=== PATIENT | female | born 1955 | race Caucasian/White ===

== ENCOUNTER → 2016-08-25 | Outpatient (CLI) | payer OTHER ==
[~2016-08-25] MED LIST: ALBU1AER9 INH; ATV1 PO; BACL20TA PO; BENZ100C84 PO; CYM60 PO; CZR50 PO; LAMO200T38 PO; LEVO150T PO; LEVO175T3 PO; ONDA4TAB9 PO; PRED20TA PO; PRLSR20 PO; SIMV20TA2 PO; SYMIN160 INH; TRAM-10 PO; TRAZ100T29 PO
[2016-08-25 12:39] LABS: THYROID STIMULATING HORMONE 0.278 uIu/ml (0.300-4.500)
== END | disposition home or self-care (01) ==
LOC: C.LAB1850 10:27
PROVIDERS: ATTEND Internal Medicine Endocrinology, Diabetes & Metabolism
DX: E89.0 Postprocedural hypothyroidism (principal); R51 Headache

== ENCOUNTER 2016-10-07 12:27 | Emergency (ER) | payer OTHER ==
[~2016-10-07] VITALS: Ht 160 cm; Wt 37.3 kg
[~2016-10-07 12:27] MED LIST changes: -LEVO150T PO; -PRED20TA PO; -PRLSR20 PO
[2016-10-07 12:40] VITALS: TEMP 37.3; Ht 160 cm; Wt 37.3 kg
[2016-10-07] MEDS ORDERED: DiphenhydrAMINE HCL 50 MG/ML VIAL IV STA (13:20)
[2016-10-07] MEDS ORDERED: SODIUM CHLORIDE 0.9% 1000ML 1,000 ML IV STA (13:20)
[2016-10-07] MEDS ORDERED: HYDROCODONE/ACETAMINOPHEN 7.5/325MG TAB PO STA (13:24)
--- NOTE | 2016-10-07 13:26 | EMERGENCY ROOM VISIT NOTE ---
History Report prepared by Stewart: Claudia Carpio Under the Supervision of: Dr. Katie Mathias M.D. First contact with patient: 13:15 Chief Complaint: ALLERGIC REACTION Stated Complaint: ALLERGIC REACTION Nursing Triage Summary: PT SENT HERE VIA ALS FROM THE [address] [facility] WHERE SHE WAS HAVING AN APPT WITH HER PCP FOR ONGOING LEFT SHOULDER PAIN. PT RECEIVED 15MG IM TORADOL AND 80MG IM SOLUMEDROL AT THE OFFICE WHEN SHE DEVELOPED A "SCRATCHY THROAT AND PINS AND NEEDLES AROUND HER MOUTH". EN ROUTE PT VERBALIZED SHE WAS NAUSEATED, EMS GAVE 4MG IV ZOFRAN EN ROUTE. PT PRESENTS TO ED STILL C/O "PINS AND NEEDLES AROUND LIPS". O2 SATS 98% ON ROOM AIR. History of Present Illness The patient is a 61 year old female who presents to the Emergency Room with complaints of an allergic reaction that occurred today. The patient states that she was seeing Dr. Miles today in the office due to ongoing left shoulder pain for the past several months. She received 15 mg IM Toradol and 80 mg IM Solu-Medrol and started getting the sensation of needles around her mouth and face. Her legs were also shaky. Dr. Miles recommended that she come to the ED. Currently, she states that she feels "prickly," especially around her mouth. She has never had an allergic reaction to Toradol in the past. She has other allergies but notes that her symptoms are typically different. She did not receive any Benadryl in the office. She also complains of left shoulder pain that radiates through her hand. It is worse with movement and is weaker than usual. Denies rash, shortness of breath, or other complaints. She does not follow up with a pain specialist. Source of History: patient Onset: today Position: other (global) Quality: other (allergic reaction) Timing: other (episode) Associated Symptoms: No SOB, No rash Note: Other symptoms: left shoulder/arm pain Review of Systems See HPI for pertinent positives & negatives. A total of 10 systems reviewed and were otherwise negative. Past Medical & Surgical Medical Problems: (1) Abdominal pain (2) Arthritis (3) Asthma (4) Bone spur (5) Bronchitis (6) Chronic low back pain (7) Degenerative disc disease (8) Emphysema of lung (9) Hypertension (10) Kidney stone (11) Thyroid cancer Surgical Problems: (1) S/P cholecystectomy (2) S/P hysterectomy Family History FH: aneurysm FH: cancer FH: hypertension FH: kidney disease FH: lung disease Heart disease Social History Smoking Status: Unknown if Ever Smoked Alcohol Use: occasionally Marital Status: Housing Status: lives with family Current/Historical Medications Scheduled Duloxetine HCl (Duloxetine HCl), 120 MG PO QAM Lamotrigine (Lamictal), 200 MG PO BID Levothyroxine Sodium (Levothyroxine Sodium), 175 MCG PO DAILY Lorazepam (Lorazepam), 1 MG PO TID Losartan Potassium (Losartan Potassium), 50 MG PO DAILY Prednisone (Prednisone), 40 MG PO DAILY Simvastatin (Zocor), 20 MG PO QPM Trazodone Hcl (Trazodone), 3 TAB PO HS Scheduled PRN Baclofen (Lioresal), 20 MG PO QID PRN for Muscle Spasms Budesonide/Formoterol Fumarate (Symbicort 160/4.5 Inhaler ), 2 PUFFS INH BID PRN for SOB/Wheezing Ondansetron (Ondansetron HCl), 4 MG PO Q6 PRN for Nausea or Vomiting Tramadol (Ultram), 1-2 TAB PO BID PRN for Pain Allergies Coded Allergies: Fish (Verified Allergy, Unknown, ., 10/07/16) SEAFOOD Iodinated Diagnostic Agents (Unverified Allergy, Unknown, Itchiness, ) contrast media causes itchiness Ketorolac (Verified Allergy, Unknown, ., 10/07/16) Morphine (Verified Allergy, Unknown, ., 10/07/16) Shellfish (Verified Allergy, Unknown, GI upset, 10/07/16) Sulfa Antibiotics (Unverified Allergy, Unknown, Itching, GI distress, 10/07) Sumatriptan (Verified Adverse Reaction, Unknown, FELT SICK,NAUSEA, 10/07/16 ) Uncoded Allergies: PET DANDER (Allergy, Unknown, ., 09/07/15) Physical Exam Vital Signs Date Time Temp Pulse Resp B/P Pulse Ox O2 Delivery O2 Flow Rate FiO2 10/07/16 15:06 63 18 137/78 96 Room Air 10/07/16 12:40 98 Room Air 10/07/16 12:40 64 10/07/16 12:40 37.3 66 18 129/79 98 Room Air Physical Exam Vital signs reviewed. General: Well-appearing 61 year old female, in no significant distress. HEENT: No scleral icterus, PERRLA, neck supple. Atraumatic. Cardiovascular: Regular rate and rhythm, no extra sounds. Pulmonary: Clear to auscultation bilaterally, normal work of breathing. Abdomen: Soft, nontender, nondistended, positive bowel sounds. Musculoskeletal: Atraumatic, no peripheral edema. Pain over the left shoulder, pain with any range of motion although range of motion is intact, strength is intact, pain over the biceps tendon insertion. Neurologic: Patient awake alert and oriented x 3, full strength in all 4 extremities. Cranial nerves 2 through 12 grossly intact. Skin: Warm, dry, no rash Medical Decision & Procedures ER Provider Diagnostic Interpretation: Radiology results as stated below per my review and radiologist interpretation: LEFT SHOULDER MIN 2 VIEWS ROUTINE CLINICAL HISTORY: L arm radiculopathy pain. Neuropathy. COMPARISON: None. DISCUSSION: Moderate generalized degenerative change glenohumeral joint. Mild degenerative change acromioclavicular joint. No abnormal soft tissue calcifications. No fracture or dislocation. There is no evidence for soft tissue swelling. IMPRESSION: Moderate degenerative change. No acute bony abnormality. Electronically signed by: Syed Guevara M.D. 10/07/2016 2:39 PM Dictated Date/Time: 10/07/2016 2:37 PM CERVICAL SPINE 5 VIEWS HISTORY: Left arm radiculopathy. Shoulder pain. COMPARISON: None. FINDINGS: The cervical spine is visualized from C1 through the superior endplate of T1. There is no fracture. There is 2 mm of anterolisthesis of C4 and C5. Straightening of the cervical spine. Mild disc space narrowing and small endplate osteophytes at C5-C6 and C6-C7. Mild facet degenerative changes seen throughout the cervical spine. Mild right-sided neural foraminal narrowing at C3-C4 and moderate right-sided neural foraminal narrowing at C6-C7. Mild left-sided neural foraminal narrowing at C5-C6. Prevertebral soft tissues and the atlantodens interval are intact. IMPRESSION: No fracture or subluxation within the cervical spine. Degenerative changes as described above most pronounced at the C5-C6 and C6-C7 levels. Electronically signed by: Bennett Crane M.D. 10/07/2016 2:45 PM Dictated Date/Time: 10/07/2016 2:41 PM Medications Administered Medications (Trade) Dose Ordered Sig/Jeri Route Start Time Stop Time Status Last Admin Dose Admin Diphenhydramine HCl 50 mg 50 mg NOW STAT IV 10/07/16 13:20 10/07/16 13:22 DC 10/07/16 13:31 50 MG Sodium Chloride (Nss 1000ml) 1,000 ml @ 125 mls/hr Q8H STAT IV 10/07/16 13:20 10/07/16 16:11 DC 10/07/16 13:31 125 MLS/HR Acetaminophen/ Hydrocodone Bitart (Premium 7.5/325 Tab) 1 tab NOW STAT PO 10/07/16 13:24 10/07/16 13:25 DC 10/07/16 13:31 1 TAB ED Course 1317: The patient was evaluated in room C1. A complete history and physical examination was performed. 1320: Ordered NSS 1000 ml @ 125 mls/hr IV, Benadryl Inj 50 mg IV, Acetaminophen/ Hydrocodone Bitart 1 tab PO. 1501: Upon reevaluation, the patient appeared to have improvement of her symptoms. I discussed findings with the patient. She verbalized agreement of the treatment plan. The patient was discharged home. Medical Decision Differential includes cervical radiculopathy, rotator cuff injury, tendonitis, arthritis, septic joint, bony fracture. This patient was evaluated and appeared to be in no significant distress. IV access was obtained. The patient was medicated with IV Benadryl 50 mg and hydrated with normal saline solution. Patient requested something for pain regarding her shoulder, she was given Premium 7.5/325. Patient was reassured regarding her findings. I do not suspect a severe allergic reaction. The patient did request IV narcotics for her chronic discomfort. She was encouraged to follow-up with orthopedic surgery this week for evaluation of this shoulder. She will return to the ER for worsening of symptoms or any medical concerns. Impression Primary Impression: Left shoulder pain Additional Impression: Allergic reaction Scribe Attestation The scribe's documentation has been prepared under my direction and personally reviewed by me in its entirety. I confirm that the note above accurately reflects all work, treatment, procedures, and medical decision making performed by me. Departure Information Dispostion Home / Self-Care Prescriptions Prednisone (Prednisone) 20 Mg Tab 40 MG PO DAILY, #8 TAB Prov: Katie Mathias M.D. 10/07/16 Referrals RV. Fields MD (PCP) Patient Instructions [facility] Additional Instructions Diagnosis: Left shoulder pain, allergic reaction Prednisone 40 mg daily for 4 more days Benadryl 25-50 mg every 6 hours as needed for itching or allergic symptoms. Continue your Ultram as prescribed for pain. Follow-up with your physician this week for reevaluation. Contact orthopedics for follow-up regarding her left shoulder. Return to the ER for worsening of symptoms or any medical concerns. Problem Qualifiers Primary Impression: Left shoulder pain Chronicity: acute Qualified Codes: M25.512 - Pain in left shoulder Additional Impression: Allergic reaction Encounter type: initial encounter Qualified Codes: T78.40XA - Allergy, unspecified, initial encounter
--- NOTE | 2016-10-07 14:40 | DIAGNOSTIC IMAGING REPORT ---
LEFT SHOULDER MIN 2 VIEWS ROUTINE CLINICAL HISTORY: L arm radiculopathy pain. Neuropathy. COMPARISON: None. DISCUSSION: Moderate generalized degenerative change glenohumeral joint. Mild degenerative change acromioclavicular joint. No abnormal soft tissue calcifications. No fracture or dislocation. There is no evidence for soft tissue swelling. IMPRESSION: Moderate degenerative change. No acute bony abnormality. Electronically signed by: Syed Guevara M.D. 10/07/2016 2:39 PM Dictated Date/Time: 10/07/2016 2:37 PM
--- NOTE | 2016-10-07 14:46 | DIAGNOSTIC IMAGING REPORT ---
CERVICAL SPINE 5 VIEWS HISTORY: Left arm radiculopathy. Shoulder pain. COMPARISON: None. FINDINGS: The cervical spine is visualized from C1 through the superior endplate of T1. There is no fracture. There is 2 mm of anterolisthesis of C4 and C5. Straightening of the cervical spine. Mild disc space narrowing and small endplate osteophytes at C5-C6 and C6-C7. Mild facet degenerative changes seen throughout the cervical spine. Mild right-sided neural foraminal narrowing at C3-C4 and moderate right-sided neural foraminal narrowing at C6-C7. Mild left-sided neural foraminal narrowing at C5-C6. Prevertebral soft tissues and the atlantodens interval are intact. IMPRESSION: No fracture or subluxation within the cervical spine. Degenerative changes as described above most pronounced at the C5-C6 and C6-C7 levels. Electronically signed by: Bennett Crane M.D. 10/07/2016 2:45 PM Dictated Date/Time: 10/07/2016 2:41 PM
[2016-10-07] MEDS ORDERED: PRED20TA PO (14:55)
[2016-10-07 15:06] VITALS: BP 137/78; PULSE 63; O2SAT 96
[2017-05-26] MEDS ORDERED: PRLSR20 PO (13:27)
[2017-05-26] MEDS ORDERED: LEVO150T PO (13:27)
== END 2016-10-07 15:13 | disposition home or self-care (01) ==
LOC: EDBD 12:27 → C.EDC 12:28
DX: M25.512 Pain in left shoulder (principal); T78.40XA Allergy, unspecified, initial encounter; X58.XXXA Exposure to other specified factors, initial encounter; M19.90 Unspecified osteoarthritis, unspecified site; J45.909 Unspecified asthma, uncomplicated; J43.9 Emphysema, unspecified; I10 Essential (primary) hypertension; Z87.442 Personal history of urinary calculi; Z85.850 Personal history of malignant neoplasm of thyroid; Z80.9 Family history of malignant neoplasm, unspecified; Z82.49 Family history of ischemic heart disease and other diseases of the circulatory system; Z84.1 Family history of disorders of kidney and ureter; Z83.6 Family history of other diseases of the respiratory system; Z79.899 Other long term (current) drug therapy

== ENCOUNTER → 2016-10-29 | Outpatient (CLI) | payer OTHER ==
[~2016-10-29] MED LIST changes: -ALBU1AER9 INH; -BENZ100C84 PO; +LEVO150T PO; +PRED20TA PO; +PRLSR20 PO
--- NOTE | 2016-10-29 12:09 | DIAGNOSTIC IMAGING REPORT ---
ADDENDUM Conclusion #3 should state neoplastic potential is considered low. Electronically signed by: Syed Guevara M.D. 10/29/2016 1:42 PM Dictated Date/Time: 10/29/2016 1:42 PM ORIGINAL REPORT MRCP CLINICAL HISTORY: K86.2 Pancreatic cyst TECHNIQUE: Multiaxial MRI acquisition COMPARISON STUDY: CT examination of the abdomen dated 08/03/2015, 11/12/2015, 05/05/2016 FINDINGS: Signal characteristics of liver and spleen are unremarkable. MRCP comparison study is unremarkable. There is a 5 mm cystic focus in the region of the juncture of the pancreatic body and tail unchanged as compared to several prior CT exams. This again is most consistent with that of a sidebranch ISMN. There are no new or interval lesions. There is no significant abdominal or retroperitoneal adenopathy. Kidneys enhance uniformly. No evidence for hydronephrosis. IMPRESSION: 1. Stable 5 mm cystic process juncture pancreatic body and tail. 2. Study is otherwise unremarkable. 3. Given its stability over several prior exams, neoplastic potential is considered nodular lobe. 4. Remainder the study is negative Electronically signed by: Syed Guevara M.D. 10/29/2016 12:08 PM Dictated Date/Time: 10/29/2016 11:58 AM
== END | disposition home or self-care (01) ==
LOC: C.MRIBC 11:03
PROVIDERS: ATTEND Internal Medicine
DX: K86.2 Cyst of pancreas (principal)

== ENCOUNTER → 2016-11-14 | Outpatient (CLI) | payer OTHER ==
--- NOTE | 2016-11-14 16:29 | MAMMOGRAPHY REPORT ---
BILATERAL DIGITAL SCREENING MAMMOGRAM WITH CAD: 11/14/2016 TECHNIQUE: Current study was also evaluated with a Computer Aided Detection (CAD) system. Bilatera l CC and MLO views were obtained. COMPARISON: Comparison is made to exams dated: 06/21/2013 mammogram, 06/05/2014 mammogram, 5 mammogram, and 07/08/2011 mammogram - [facility]. BREAST COMPOSITION: There are scattered areas of fibroglandular density in both breasts. FINDINGS: No suspicious masses, calcifications, or areas of architectural distortion are noted in e ither breast. There has been no significant interval change compared to prior exams. IMPRESSION: ACR BI-RADS CATEGORY 1: NEGATIVE There is no mammographic evidence of malignancy. A 1 year screening mammogram is recommended. The p atient will receive written notification of the results. Approximately 10% of breast cancers are not detected with mammography. A negative mammographic repor t should not delay biopsy if a clinically suggestive mass is present. Demetria Donnelly M.D. ah/:11/14/2016 15:32:00 Front Facer: Rosaura OAKES(R)(M), [facility] letter sent: Normal 1/2 BI-RADS Code: ACR BI-RADS Category 1: Negative
== END | disposition home or self-care (01) ==
LOC: C.MAMM 13:30
PROVIDERS: ATTEND Internal Medicine
DX: Z12.31 Encounter for screening mammogram for malignant neoplasm of breast (principal)

== ENCOUNTER → 2016-12-01 | Outpatient (CLI) | payer OTHER ==
[~2016-12-01] MED LIST changes: +OXYC-57 PO
[2016-12-01 17:50] LABS: ALT/SGPT 24 U/L (12-78); BLOOD UREA NITROGEN 9 mg/dl (7-18); BUN/CREATININE RATIO 9.4 (10-20); CARBON DIOXIDE 25 mmol/L (21-32); CHLORIDE 103 mmol/L (98-107); CHOLESTEROL 211 mg/dl (0-200); CREATININE 0.96 mg/dl (0.60-1.20); GLUCOSE 92 mg/dl (70-99); POTASSIUM 3.6 mmol/L (3.5-5.1); SODIUM 135 mmol/L (136-145); TRIGLYCERIDES 59 mg/dl (0-150); VERY LOW DENSITY LIPOPROT CALC 12 mg/dl
[2016-12-01 17:59] LABS: ALB/GLOB RATIO 1.3 (0.9-2); ALKALINE PHOSPHATASE 73 U/L (45-117); AST/SGOT 17 U/L (15-37); CHOLESTEROL/HDL RATIO 2.2; HDL CHOLESTEROL 95 mg/dl; LDL CHOLESTEROL CALCULATED 104 mg/dl; THYROID STIMULATING HORMONE 0.171 uIu/ml (0.300-4.500)
== END | disposition home or self-care (01) ==
LOC: C.LABBC 12:18
PROVIDERS: ATTEND Internal Medicine Endocrinology, Diabetes & Metabolism
DX: M81.0 Age-related osteoporosis without current pathological fracture (principal); M25.512 Pain in left shoulder; E89.0 Postprocedural hypothyroidism; I10 Essential (primary) hypertension; E78.5 Hyperlipidemia, unspecified

== ENCOUNTER → 2016-12-15 | Outpatient (CLI) | payer OTHER | END | disposition home or self-care (01) | LOC: C.MAMM 13:39 | PROVIDERS: ATTEND Internal Medicine | DX: M81.0 Age-related osteoporosis without current pathological fracture (principal); M85.88 Other specified disorders of bone density and structure, other site; M85.851 Other specified disorders of bone density and structure, right thigh ==

== ENCOUNTER → 2017-02-09 | Outpatient (CLI) | payer OTHER ==
[2017-02-09 14:27] LABS: THYROID STIMULATING HORMONE 0.045 uIu/ml (0.300-4.500)
== END | disposition home or self-care (01) ==
LOC: C.LABMFLN 11:39
PROVIDERS: ATTEND Internal Medicine Endocrinology, Diabetes & Metabolism
DX: E89.0 Postprocedural hypothyroidism (principal)

== ENCOUNTER → 2017-06-04 | Day surgery (SDC) | payer OTHER ==
[2017-05-26 13:29] VITALS: Ht 162.6 cm; Wt 62.3 kg
[~2017-06-04] VITALS: Ht 162.6 cm; Wt 62.3 kg
[~2017-06-04] MED LIST changes: +ATROPINE SULFATE 0.1 MG/ML 5ML SYR IV PRN; +BUPIVACAINE/EPINEPHRINE 0.25% 1:200,000 30 ML VIAL ONE; +BUPIVACAINE/EPINEPHRINE 0.5% MPF 1:200,000 30 ML VIAL ONE; +CEFAZOLIN 2000 MG/60 ML D5W IV SCH; +DEXAMETHASONE SOD INJ 4 MG/ML VIAL ONE; +EpHEDrine SULFATE INJ 50 MG/ML AMP IV PRN; +EpINEphrine INJ 1MG/ML AMP 1 MG/ML AMP ONE; +FENTANYL CITRATE INJ 50 MCG/1 ML 2 ML VIAL IV PRN; +FENTANYL CITRATE INJ 50 MCG/1 ML 2 ML VIAL ONE; +LACTATED RINGER'S 1000ML 1,000 ML IV SCH; -LEVO175T3 PO; +LIDOCAINE HCL 2% 2 ML VIAL (20MG/ML) ONE; +MIDAZOLAM HCL 1 MG/ML 2ML VIAL ONE; +ONDANSETRON INJ 2 MG/ML 2 ML VIAL IV PRN; +ONDANSETRON INJ 2 MG/ML 2 ML VIAL ONE; +OXYCODONE/ACETAMINOPHEN 5-325 TAB PO PRN; -PRED20TA PO; +PROMETHAZINE HCL INJ 6.25 MG in SODIUM CHLORIDE 0.9% 50ML 50 ML IV PRN; +PROPOFOL IV EMULSION 10 MG/ML 20 ML VIAL IV ONE; +SODIUM CHLORIDE 0.9% 1000ML 1,000 ML IV SCH; -SYMIN160 INH; -TRAM-10 PO
--- NOTE | 2017-06-04 09:19 | History & Physical Bridge - SC ---
H&P Re-Evaluation Bridge Note: I have examined the patient, reviewed the History & Physical and in the interval since the performance of the History & Physical I have noted the following changes of clinical significance: No changes noted
--- NOTE | 2017-06-04 11:01 | Discharge Instructions-SurgCtr ---
Discharge Instructions Date of Service Jun 04, 2017. Visit Reason for Visit: Left Shoulder Full Thickness Rotator Cuff Tear Discharge Discharge Diagnosis / Problem: SAME ABOVE Discharge Goals Goal(s): Decrease discomfort, Improve function Medications Stopped Medications Name(s): ibuprofen stopped last dose 1 week ago. Restart Stopped Medication(s): MAY RESTART 06/04/2017 Activity Recommendations Activity Limitations: as noted below Lifting Limitations: until after follow-up appointment Exercise/Sports Limitations: until after follow-up appointment Shower/Bathe: tomorrow Anesthesia . Post Anesthesia Instructions: If you have had General Anesthesia or IV Sedation: * Do not drive today. * Resume driving when surgeon permits. * Do not make important decisions or sign legal documents today. * Call surgeon for: 1. Temperature elevations greater than 101 degrees F. 2. Uncontrollable pain. 3. Excessive bleeding. 4. Persistent nausea and vomiting. 5. Medication intolerance (nausea, vomiting or rash). * For nausea and vomiting use only clear liquids such as: tea, soda, bouillon until nausea subsides, then gradually increase diet as tolerated. * If you have any concerns or questions, call your surgeon's office. If physician is unavailable and it is an emergency, call 911 or go to the nearest emergency room. . Instructions / Follow-Up Instructions / Follow-Up MEDICATIONS: * Resume previous medications unless instructed otherwise by your surgeon. * Always take pain medication on a full stomach or with food to avoid upset stomach. * Do not drink alcohol or drive while taking narcotics. * Ibuprofen or Tylenol may be taken if narcotic not needed. SPECIAL CARE INSTRUCTIONS: __ None _X_ Keep extremity elevated and iced x 48 hours; apply ice 20-30 minutes 8-10 times/day. May remove at night. __ Sling __24 hrs/day __ Remove at night _X_ Shoulder Immobilizer (MAY REMOVE AFTER 48 HOURS ONLY TO SHOWER AND FOR THERAPY) _X_ 24 hrs/day __ Remove at night _X_ Dressing __ Maintain until seen in office, may shower with plastic over site _X_ Remove dressings in 24-48 hours and then may shower _X_ Cover incisions with band-aids after showering __ Do not remove steri-strips Call physician if chills or temperature rises above 102 degrees or pain unrelieved by prescribed pain medications at . . Diet Recommendations Home Diet: no limitations Fluid Restriction: None Procedures Procedures Performed: Left Shoulder Arthroscopy, Medium Rotator Cuff Repair Pending Studies Studies pending at discharge: no Work Instructions Return To Work: after follow-up Lifting Limitations: NO LIFTING WITH LEFT ARM Medical Emergencies . Who to Call and When: Medical Emergencies: If at any time you feel your situation is an emergency, please call 911 immediately. . Non-Emergent Contact Non-Emergency issues call your: Primary Care Provider Call Non-Emergent contact if: you have a fever, temperature is above 101.5 . . "Provider Documentation" section prepared by Carlos Gilbert. .
[2017-06-04 11:02] VITALS: TEMP 36.1
--- NOTE | 2017-06-04 11:11 | [facility] Post Operative Brief Note ---
Immediate Operative Summary Operative Date Jun 04, 2017. Pre-Operative Diagnosis Left Shoulder Full Thickness Rotator Cuff Tear Post-Operative Diagnosis Same Procedure(s) Performed Left Shoulder Arthroscopy, Medium Rotator Cuff Repair Surgeon Dr [address] Project Manager Surgeon(s) Gal Gilbert PA-C Estimated Blood Loss Trace Findings as above Specimens None Complication(s) None Disposition Recovery Room / PACU
--- NOTE | 2017-06-04 11:12 | OPERATIVE REPORT ---
DATE OF OPERATION: 06/04/2017 PREOPERATIVE DIAGNOSIS: Medium sized left rotator cuff tear with acromioclavicular joint arthritis. POSTOPERATIVE DIAGNOSIS: Same. PROCEDURE: Left shoulder diagnostic arthroscopy with limited debridement, acromioplasty, medium size rotator cuff repair, arthroscopic biceps tenodesis and distal clavicle resection. SURGEON: Dr. Wojciech Juarez. TEXTURING MACHINE FIXER: Gal Gilbert PA-C, whose assistance was necessary for positioning of the arm and helping with instrumentation. ANESTHESIA: Sedation with a left interscalene nerve block. COMPLICATIONS: None. CONDITION: Stable to PACU. INDICATIONS: Idania is a pleasant 62-year-old female who has been having a 1-year history of left shoulder pain. MRI and clinical examination were diagnostic for medium sized rotator cuff tear and AC joint arthritis. After failing conservative treatment, she elected to undergo arthroscopy. DESCRIPTION OF PROCEDURE: On 06/04/2017, she arrived at [facility] for the above procedure. She was seen in the preoperative holding area and the operative extremity was identified and signed. She was given a preoperative antibiotic and a left interscalene nerve block. She was taken back to the operating room, put on the table in the supine position and given basic sedation. She was then put into the beachchair position. The left shoulder was prepped and draped in sterile fashion. Time-out was done and the patient and operative extremity was properly identified. A scope was introduced into the posterior portal. Diagnostic arthroscopy showed no cartilage damage to the humeral head or the glenoid. The biceps tendon was intact. There was a tear of the entire supraspinatus that included the biceps andrew mechanism. There was a little fraying of the anterior and superior labrum. An anterior portal was made. A shaver was used to do a limited debridement of the intraarticular structures and the biceps tendon was arthroscopically tenotomized for later tenodesis. A scope was then put into the subacromial space. A lateral portal was made. A shaver was used to do a complete subacromial and subdeltoid bursectomy. An ablator was used to tease the coracoacromial ligament off the undersurface of the acromion and a 5-0 kavin was used to complete an acromioplasty of a large Bigliani type 3 acromion. A shaver was used to remove any excess debris and attention was turned to the rotator cuff. An additional anterolateral portal was made and Alysa cannulas were placed in each of the lateral portals. The rotator cuff tear was better identified. There was a medium size crescent-shaped rotator cuff tear. The greater tuberosity was prepared with a ring curette and a microfracture. The rotator cuff was then fixed with an Arthrex SpeedBridge configuration using 2 medial row BioComposite SwiveLock suture anchors and 2 lateral row SwiveLock suture anchors. This gave a nice knotless SpeedBridge repair. Multiple pictures were taken. The biceps tendon was tagged with an Arthrex FiberLink suture and incorporated into the anterior lateral anchor to complete a biceps tenodesis. The attention was then turned to the distal clavicle. Through an anterior portal, a shaver and ablator were used to skeletonize the distal clavicle. A 5-0 kavin was then used to resect the distal 5 mm from the clavicle. Complete resection was checked under direct visualization. The scope was placed back into the glenohumeral joint and the articular margin of the rotator cuff had been restored. Multiple pictures were taken. Arthroscopic instruments were removed from the shoulder. Portal sites were closed with 3-0 nylon. She was then placed in a soft dressing and an abduction arm sling. She was then taken to the postanesthesia care unit in stable condition. She tolerated the procedure well. I attest to the content of the Intraoperative Record and any orders documented therein. Any exception s are noted below.
[2017-06-04 11:30] VITALS: BP 131/85; PULSE 70; O2SAT 96
--- NOTE | 2017-06-04 11:37 | Anesthesia Progress Nt - [facility] ---
Anesthesia Post Op Note Date & Time Jun 04, 2017 at 11:37 Vital Signs Pain Intensity: 0 Vital Signs Past 12 Hours Date Time Temp Pulse Resp B/P (MAP) Pulse Ox O2 Delivery O2 Flow Rate FiO2 06/04/17 11:30 70 16 131/85 (100) 96 Room Air 06/04/17 11:02 36.1 84 16 131/62 (85) 94 Room Air 06/04/17 09:32 86 06/04/17 09:32 85 28 94 06/04/17 09:30 132/69 06/04/17 09:27 88 06/04/17 09:27 88 13 96 06/04/17 09:26 89 15 95 06/04/17 09:26 90 06/04/17 09:25 137/71 06/04/17 09:21 88 14 95 06/04/17 09:21 89 06/04/17 09:20 135/70 06/04/17 09:16 81 06/04/17 09:16 82 10 95 06/04/17 09:15 123/65 06/04/17 09:11 85 24 97 06/04/17 09:11 85 06/04/17 09:10 78 10 119/70 97 06/04/17 09:10 78 06/04/17 09:05 71 06/04/17 09:05 71 16 128/83 97 06/04/17 09:01 122/94 06/04/17 09:00 68 06/04/17 09:00 65 0 96 06/04/17 08:55 64 06/04/17 08:55 63 0 98 06/04/17 08:50 64 0 97 06/04/17 08:50 64 06/04/17 08:45 64 0 96 06/04/17 08:45 64 06/04/17 08:40 67 06/04/17 08:40 67 0 96 06/04/17 08:35 68 06/04/17 07:13 36.7 66 16 138/78 (98) 99 Room Air Notes Mental Status: alert / awake / arousable, participated in evaluation Pt Amnestic to Procedure: Yes Nausea / Vomiting: adequately controlled Pain: adequately controlled Airway Patency, RR, SpO2: stable & adequate BP & HR: stable & adequate Hydration State: stable & adequate Anesthetic Complications: no major complications apparent block working well in pacu
== END | disposition home or self-care (01) ==
LOC: X.SURG 06:47
PROVIDERS: ATTEND Orthopaedic Surgery
DX: M75.102 Unspecified rotator cuff tear or rupture of left shoulder, not specified as traumatic (principal); M19.019 Primary osteoarthritis, unspecified shoulder; E03.9 Hypothyroidism, unspecified; J44.9 Chronic obstructive pulmonary disease, unspecified; I10 Essential (primary) hypertension; F41.9 Anxiety disorder, unspecified; F32.9 Major depressive disorder, single episode, unspecified; F17.200 Nicotine dependence, unspecified, uncomplicated; Z98.890 Other specified postprocedural states; Z90.710 Acquired absence of both cervix and uterus; Z90.49 Acquired absence of other specified parts of digestive tract; Z90.89 Acquired absence of other organs; Z82.49 Family history of ischemic heart disease and other diseases of the circulatory system

== ENCOUNTER → 2017-07-23 | Outpatient (CLI) | payer OTHER ==
[~2017-07-23] MED LIST changes: -ATROPINE SULFATE 0.1 MG/ML 5ML SYR IV PRN; -BUPIVACAINE/EPINEPHRINE 0.25% 1:200,000 30 ML VIAL ONE; -BUPIVACAINE/EPINEPHRINE 0.5% MPF 1:200,000 30 ML VIAL ONE; -CEFAZOLIN 2000 MG/60 ML D5W IV SCH; -DEXAMETHASONE SOD INJ 4 MG/ML VIAL ONE; -EpHEDrine SULFATE INJ 50 MG/ML AMP IV PRN; -EpINEphrine INJ 1MG/ML AMP 1 MG/ML AMP ONE; -FENTANYL CITRATE INJ 50 MCG/1 ML 2 ML VIAL IV PRN; -FENTANYL CITRATE INJ 50 MCG/1 ML 2 ML VIAL ONE; -LACTATED RINGER'S 1000ML 1,000 ML IV SCH; -LIDOCAINE HCL 2% 2 ML VIAL (20MG/ML) ONE; -MIDAZOLAM HCL 1 MG/ML 2ML VIAL ONE; -ONDANSETRON INJ 2 MG/ML 2 ML VIAL IV PRN; -ONDANSETRON INJ 2 MG/ML 2 ML VIAL ONE; -OXYCODONE/ACETAMINOPHEN 5-325 TAB PO PRN; -PROMETHAZINE HCL INJ 6.25 MG in SODIUM CHLORIDE 0.9% 50ML 50 ML IV PRN; -PROPOFOL IV EMULSION 10 MG/ML 20 ML VIAL IV ONE; -SODIUM CHLORIDE 0.9% 1000ML 1,000 ML IV SCH
[2017-07-23 13:17] LABS: THYROID STIMULATING HORMONE 0.573 uIu/ml (0.300-4.500)
[2017-07-24 14:23] LABS: THYROGLOBULIN 0.2 NG/ML (2.8-40.9)
== END | disposition home or self-care (01) ==
LOC: C.LABMFLN 08:26
PROVIDERS: ATTEND Internal Medicine Endocrinology, Diabetes & Metabolism
DX: C73 Malignant neoplasm of thyroid gland (principal); E89.0 Postprocedural hypothyroidism; G45.9 Transient cerebral ischemic attack, unspecified; R51 Headache

== ENCOUNTER → 2017-08-06 | Outpatient (CLI) | payer OTHER ==
[~2017-08-06] MED LIST changes: +LAMO200T35 PO; -LAMO200T38 PO
[2017-08-06 13:21] LABS: BLOOD UREA NITROGEN 14 mg/dl (7-18); CREATININE 0.92 mg/dl (0.60-1.20)
== END | disposition home or self-care (01) ==
LOC: C.LABMFLN 09:56
PROVIDERS: ATTEND Psychiatry & Neurology Neurology
DX: G45.9 Transient cerebral ischemic attack, unspecified (principal)

== ENCOUNTER → 2017-09-25 | Outpatient (CLI) | payer OTHER ==
--- NOTE | 2017-09-25 12:00 | EXERCISE STRESS ECHO ---
*NOTICE TO RECEIVING REPUBL[employer] AGENCY This information is strictly Confidential and protected under [place] law. [place] law prohibits you from making any further disclosure of this information unless further disclosure is expressly permitted by the written consent of the person to whom it pertains or is authorized by law. A general authorization for the release of medical or other information is not sufficient for this purpose. Hospital accepts no responsibility if the information is made available to any other person, INCLUDING THE PATIENT. Interpretation Summary * Name: ERICKA OLSON Study Date: 09/25/2017 10:04 AM BP: 159/84 mmHg * Patient Location: [facility] HR: 74 * : 1955 (M/d/yyyy) Gender: Female Height: 64 in * Age: 62 yrs Ethnicity: [place] Weight: 145 lb * Ordering Physician: Kings Corrigan * Referring Physician: Kings Corrigan * Performed By: Twyla Hong RDCS * * Reason For Study: Chest pain * BSA: 1.7 m2 * -- Conclusions -- * 1. Non-diagnostic stress echo due to inability to reach target heart rate. No echocardiographic or ECG signs of ischemia at 67% MPHR. * 2. Below average functional capacity. Exercise 3:16, achieving 4.9 METS. Test stopped due to dyspnea, lightheadedness. Substernal chest pressure in recovery. * 3. Normal resting biventricular size and function. LVEF 60-65%. No significant valvular pathology. * 4. Doppler suggests left to right interatrial shunt. * 5. Compared with prior study on 03/15/2014: Exercise tolerance has decreased. Procedure Details * ECHOEX, CPT #[id number] * ECHO DOPPLER, CPT #[id number] * ECHO COLOR FLOW, CPT #[id number] Left Ventricle * The left ventricle is grossly normal size. * There is mild concentric left ventricular hypertrophy. * Ejection Fraction = 55-60%. * Resting wall motion: Normal. Stress wall motion: Appropriate increase in Left ventricular systolic function and decrease in cavity size. No stress induced segmental wall motion abnormalities. Right Ventricle * The right ventricle is grossly normal size. * The right ventricular systolic function is normal as assessed by tricuspid annular plane systolic excursion (TAPSE) (normal >1.5 cm). Atria * The left atrium is mildly dilated. * Right atrial size is normal. * Doppler suggests left to right interatrial shunt. Mitral Valve * The mitral valve is grossly normal. * There is no mitral valve stenosis. * Significant mitral regurgitation is absent. Tricuspid Valve * The tricuspid valve anatomy is normal. * There is trace tricuspid regurgitation. Aortic Valve * The aortic valve opens well. * The aortic valve is trileaflet. * No hemodynamically significant valvular aortic stenosis. * There is no significant aortic regurgitation. Pulmonic Valve * The pulmonary valve is inadequately visualized, but the Doppler data is adequate for interpretation. * Trace pulmonic valvular regurgitation. Great Vessels * The aortic root and proximal ascending aorta are normal sized. Pericardium * There is no pericardial effusion. Stress Parameters * Normal baseline electrocardiogram. * Stress ECG: No ST changes. No arrhythmias. * No arrhythmia were noted with stress. * Rest heart rate was '74' BPM. * Rest blood pressure was '159/84' * Maximum heart rate achieved was 106 bpm. * Maximum heart rate was 67 % of maximum age-predicted heart rate. * Maximum blood pressure was '159/84' * Total exercise time was '03:16' * Maximum exercise MET level achieved was '4.90' METS * Maximum treadmill speed was '2.50' miles per hour. * Maximum treadmill elevation was '12.00'% grade. Left Ventricular Findings with Stress * The study was technically good with many images being of high quality. MMode 2D Measurements and Calculations IVSd 1.2 cm IVSs 1.4 cm LVIDd 3.9 cm LVIDs 2.4 cm LVPWd 1.3 cm LVPWs 1.5 cm IVS/LVPW 0.96 FS 38.0 % EDV(Teich) 65.6 ml ESV(Teich) 20.5 ml EF(Teich) 68.8 % EDV(cubed) 59.0 ml ESV(cubed) 14.1 ml EF(cubed) 76.1 % % IVS thick 12.3 % % LVPW thick 23.0 % LV mass(C)d 164.9 grams LV mass(C)dI 96.7 grams/m\S\2 LV mass(C)s 113.6 grams LV mass(C)sI 66.6 grams/m\S\2 SV(Teich) 45.2 ml SI(Teich) 26.5 ml/m\S\2 SV(cubed) 44.9 ml SI(cubed) 26.3 ml/m\S\2 Ao root diam 2.6 cm Ao root area 5.2 cm\S\2 ACS 1.8 cm LA dimension 3.6 cm LA/Ao 1.4 LVAd ap4 29.1 cm\S\2 LVLd ap4 8.4 cm EDV(MOD-sp4) 82.0 ml EDV(sp4-el) 85.8 ml LVAs ap4 14.8 cm\S\2 LVLs ap4 7.1 cm ESV(MOD-sp4) 27.9 ml ESV(sp4-el) 25.9 ml EF(MOD-sp4) 66.0 % EF(sp4-el) 69.8 % LVAd ap2 28.8 cm\S\2 LVLd ap2 8.6 cm EDV(MOD-sp2) 82.3 ml EDV(sp2-el) 82.2 ml LVAs ap2 16.9 cm\S\2 LVLs ap2 7.0 cm ESV(MOD-sp2) 36.3 ml ESV(sp2-el) 34.5 ml EF(MOD-sp2) 55.9 % EF(sp2-el) 58.0 % LVLd %diff 2.2 % EDV(MOD-bp) 81.6 ml LVLs %diff -1.96 % ESV(MOD-bp) 32.1 ml EF(MOD-bp) 60.6 % SV(MOD-sp4) 54.2 ml SI(MOD-sp4) 31.7 ml/m\S\2 SV(MOD-sp2) 46.0 ml SI(MOD-sp2) 27.0 ml/m\S\2 SV(MOD-bp) 49.4 ml SI(MOD-bp) 29.0 ml/m\S\2 SV(sp4-el) 59.9 ml SI(sp4-el) 35.1 ml/m\S\2 SV(sp2-el) 47.7 ml SI(sp2-el) 28.0 ml/m\S\2 Doppler Measurements and Calculations MV E max layne 96.0 cm/sec MV A max layne 82.0 cm/sec MV E/A 1.2 MV dec time 0.25 sec Ao V2 max 136.8 cm/sec Ao max PG 7.5 mmHg Ao max PG (full) 1.5 mmHg LV V1 max PG 6.0 mmHg LV V1 max 122.1 cm/sec PA V2 max 102.7 cm/sec PA max PG 4.2 mmHg TR max layne 191.6 cm/sec
== END | disposition home or self-care (01) ==
LOC: C.CPL 09:15
PROVIDERS: ATTEND Family Medicine
DX: I51.9 Heart disease, unspecified (principal); R07.2 Precordial pain; R93.1 Abnormal findings on diagnostic imaging of heart and coronary circulation